=== PATIENT | male | born 1990 | race Two or more races ===

== ENCOUNTER 2024-06-22 10:32 | Emergency (ER) | payer OTHER ==
[~2024-06-22] VITALS: Ht 177.8 cm; Wt 80.3 kg
[2024-06-22 10:49] VITALS: TEMP 98.4
[2024-06-22] MEDS ORDERED: IOHEXOL-300 100 ML VIAL IV ONE (11:16)
[2024-06-22] MEDS ORDERED: CT SWABBABLE VALVE TRANS SET 1 EA INFUS.SET MC ONE (11:17)
[2024-06-22] MEDS ORDERED: IV NS 0.9% 250 ML IV ONE (11:17)
[2024-06-22 11:37] LABS: BASOPHILS % (AUTO) 0.2 % (0.0-2.0); EOSINOPHILS # (AUTO) 0.1 K/uL (0.0-0.7); EOSINOPHILS % (AUTO) 1.1 % (0.0-6.0); HEMATOCRIT 42 % (39-51); HEMOGLOBIN 14.3 g/dL (13.5-17.5); LYMPHOCYTES # (AUTO) 2.7 K/uL (0.8-4.8); LYMPHOCYTES % (AUTO) 40.3 % (20.0-44.0); MEAN CORPUSCULAR HEMOGLOBIN 28 PG (26.0-33.0); MEAN CORPUSCULAR HGB CONC 34 g/dl (31.0-36.0); MEAN CORPUSCULAR VOLUME 81 fL (80-96); MONOCYTES # (AUTO) 0.4 K/uL (0.1-1.30); MONOCYTES % (AUTO) 5.2 % (2.0-12.0); NEUTROPHILS # (AUTO) 3.6 K/uL (1.8-8.9); NEUTROPHILS % (AUTO) 53.2 % (43.0-81.0); PLATELET COUNT (AUTO) 258 K/uL (150-450); RED BLOOD CELL COUNT(AUTO) 5.19 MIL/uL (4.5-6.0); RED CELL DISTRIBUTION WIDTH 14.1 % (11.5-15.0); WHITE BLOOD COUNT (AUTO) 6.8 K/uL (4.3-11.0)
[2024-06-22] MEDS ORDERED: ONDANSETRON HCL/PF 4 MG/2 ML VIAL ONE ×2 (11:37→14:18)
[2024-06-22] MEDS ORDERED: MORPHINE SULFATE INJ 4 MG/ML DISP.SYRIN ONE ×2 (11:37→14:19)
[2024-06-22 11:47] LABS: CALCIUM, SERUM 9.1 mg/dL (8.5-10.1); CREATININE 1.1 mg/dL (0.6-1.3); POTASSIUM 3.6 mmol/L (3.5-5.1)
[2024-06-22] MEDS: IV NS 0.9% 1,000 ML BAG IV ONE (11:52)
[2024-06-22] MEDS: ONDANSETRON HCL/PF 4 MG/2 ML VIAL IVP ONE (11:52)
[2024-06-22 11:53] LABS: ALBUMIN 4.1 g/dL (3.4-5.0); BILIRUBIN,DIRECT 0.2 mg/dL (0.0-0.2); BILIRUBIN,TOTAL 0.6 mg/dL (0.2-1.0)
[2024-06-22] MEDS: MORPHINE SULFATE INJ 2 MG/ML DISP.SYRIN IV ONE ×2 (12:04→14:49)
[2024-06-22] MEDS: ONDANSETRON HCL/PF 4 MG/2 ML VIAL IV ONE (14:22)
[2024-06-22 18:10] VITALS: BP 113/66; O2SAT 100
== END 2024-06-22 18:56 ==
LOC: ER 10:50
DX: S32.018A Other fracture of first lumbar vertebra, initial encounter for closed fracture (principal); S32.001A Stable burst fracture of unspecified lumbar vertebra, initial encounter for closed fracture; M48.061 Spinal stenosis, lumbar region without neurogenic claudication; W17.89XA Other fall from one level to another, initial encounter; Y93.89 Activity, other specified; Y92.89 Other specified places as the place of occurrence of the external cause; Y99.8 Other external cause status
CPT/HCPCS: 99291; 71260; 96374; 96361; 96375; 74177; 85025; 80048; 80076; 36415; 86850; 96376; J2270 ×2; J2405 ×2; J7030; J7050; Q9967